=== PATIENT | female | born 1990 | race Caucasian/White ===

== ENCOUNTER 2021-02-19 08:54 | Emergency (ER) | payer OTHER ==
[~2021-02-19] VITALS: Ht 160 cm; Wt 64.3 kg
[2021-02-19 08:54] VITALS: BP 114/70
[2021-02-19] MEDS ORDERED: MELO15TA28 PO (09:00)
[2021-02-19] MEDS ORDERED: METHOCARBAMOL 1,000 MG/10 ML VIAL (J2800) IM ONE (09:30)
--- NOTE | 2021-02-19 09:44 | REP ---
INDICATION: severe post occipital pain down into shoulders/neck COMPARISON: None. TECHNIQUE: Axial noncontrast images from the skull base to the vertex with coronal reformations. This CT examination was performed using the following dose reduction techniques: Automated exposure control, adjustment of mA and/or kv according to the patient's size, and use of iterative reconstruction technique. FINDINGS: The ventricles, sulci, and cisterns are normal in position and appearance. Easton-white differentiation is maintained. No acute intracranial hemorrhage, mass/mass effect, pathology or trauma/injury. No evidence for acute infarction. No extra-axial fluid collection. Calvarium is intact. Paranasal sinuses and mastoid air cells are clear. IMPRESSION: Normal noncontrast head CT. No evidence for acute intracranial pathology or trauma/injury. <Electronically signed by Nazario Cifuentes > 02/19/21 [id number]
--- NOTE | 2021-02-19 09:46 | REP ---
INDICATION: very limited rom, NKI. COMPARISON: None. TECHNIQUE: Standard helical technique using 2 mm increments and reconstructed in both sagittal and coronal planes FINDINGS: There is straightening of the cervical lordotic curve. The disc spaces are symmetric and well maintained throughout. The facet joints are well aligned bilaterally. Vertebral body height is within normal limits. There is no acute fracture, dislocation, or subluxation. There is no abnormal paraspinal soft tissue swelling. IMPRESSION: CT findings are within normal limits. CT cannot rule out a disc extrusion. <Electronically signed by Brandon Benson > 02/19/21 [id number]
[2021-02-19 10:05] LABS: BASO % 0.5 % (0.0-1.0); EOS # 0.3 10^3/uL (0.0-0.5); EOS % 4.9 % (0.0-3.0); HEMOGLOBIN 13.6 g/dl (12.0-15.5); LYMPH # 1.8 10^3/uL (1.5-5.0); MEAN CORPUSCULAR HEMOGLOBIN 31.6 pg (27.0-33.0); MEAN CORPUSCULAR HGB CONC 33.2 g/dl (32.0-36.5); MEAN CORPUSCULAR VOLUME 95.1 fl (80.0-96.0); MONO # 0.6 10^3/uL (0.0-0.8); MONO % 9.9 % (2.0-8.0); NEUTROPHILS % 52.5 % (36.0-66.0); PLATELET COUNT, AUTOMATED 248 10^3/uL (150-450); RED BLOOD COUNT 4.31 10^6/uL (4.00-5.40); WHITE BLOOD COUNT 5.8 10^3/uL (4.0-10.0)
[2021-02-19] MEDS ORDERED: HYDR-3713 PO (10:35)
[2021-02-19 10:43] LABS: ERYTHROCYTE SEDIMENTATION RATE 5 mm/hr (0-20)
[2021-02-19] MEDS ORDERED: NORCO, ANEXSIA 5/325MG TABLET (HYDROcodone/ACETAMINOPHEN) PO ONE (11:00)
== END 2021-02-19 11:18 | disposition home or self-care (01) ==
LOC: M ED 08:54
DX: M54.12 Radiculopathy, cervical region (principal); Z88.0 Allergy status to penicillin; F17.210 Nicotine dependence, cigarettes, uncomplicated
CPT/HCPCS: 36415; 70450; 72125; 85025; 85652; 86140; 99282; J2800